=== PATIENT | male | born 1990 | race Two or more races ===

== ENCOUNTER 2019-04-02 14:30 | Emergency (ER) | payer OTHER ==
[~2019-04-02] VITALS: Ht 180.3 cm; Wt 94.8 kg
[~2019-04-02 14:30] MED LIST: CIPRO500 MG PO; FLAGYL500MG PO; INTESTINEX1 CAP PO; LEVSIN/SL0.125 MG SL; PROTONIX40 MG PO; TYLENOL EXTRA500 MG PO
[2019-04-02] MEDS ORDERED: GENVOYA TABLET1 EACH (14:54)
[2019-04-02] MEDS ORDERED: PENICILLIN V P500 MG (14:55)
== END 2019-04-02 20:12 | disposition home or self-care (01) ==
LOC: ER 14:30
DX: K60.1 Chronic anal fissure (principal)